=== PATIENT | male | born 1970 | race Two or more races ===

== ENCOUNTER → 2021-03-07 | Day surgery (SDC) | payer OTHER | END | disposition home or self-care (01) | LOC: ADM 03-03 09:15 → AMB-ENDOS 08:38 | PROVIDERS: ATTEND Colon & Rectal Surgery | DX: K63.5 Polyp of colon (principal); K64.1 Second degree hemorrhoids; Z20.822 Contact with and (suspected) exposure to COVID-19 ==

== ENCOUNTER 2021-08-20 09:30 | Inpatient (IN) | payer OTHER ==
[~2021-08-20] VITALS: Ht 167.6 cm; Wt 97.5 kg
== END 2021-08-29 14:11 | disposition home or self-care (01) | DRG 330 ==
LOC: O/R 08-26 05:40 → SURG 08-26 05:40 → SURH 08-26 07:00 → SURG 08-26 13:28
PROVIDERS: ADMIT Colon & Rectal Surgery; ATTEND Colon & Rectal Surgery
PROC: 07BB4ZX Excision of Mesenteric Lymphatic, Percutaneous Endoscopic Approach, Diagnostic (ICD-10-PCS; 2021-08-26)
PROC: 0DTF4ZZ Resection of Right Large Intestine, Percutaneous Endoscopic Approach (ICD-10-PCS; principal; 2021-08-26 07:00)
DX: D12.0 Benign neoplasm of cecum (principal); K92.1 Melena; D12.2 Benign neoplasm of ascending colon; R59.0 Localized enlarged lymph nodes; Z86.010 Personal history of colon polyps; I11.9 Hypertensive heart disease without heart failure; E66.8 Other obesity; N18.2 Chronic kidney disease, stage 2 (mild); I12.9 Hypertensive chronic kidney disease with stage 1 through stage 4 chronic kidney disease, or unspecified chronic kidney disease